=== PATIENT | female | born 1950 | race Hispanic/Latino ===

== ENCOUNTER 2016-11-02 09:21 | Outpatient (CLI) | payer MEDICARE ==
--- NOTE | 2016-11-02 13:58 | Mammography Report ---
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 COMPARISON:09/28/15 FINDINGS: The breasts are heterogeneously dense, which may obscure small masses.Stable asymmetry and architectural distortion at the left upper outer stereotactic biopsy site. No mass, suspicious architectural distortion or suspicious calcifications. IMPRESSION: No mammographic evidence of malignancy. BI-RADS CATEGORY: 2 -- Benign RECOMMENDATION: Routine mammographic screening in one year. COMMENT: Patient follow-up letters are generated by our [employer] application.
== END 2016-11-02 09:22 | disposition home or self-care (01) ==
LOC: SPVWC 09:21
PROVIDERS: ATTEND Nurse Practitioner Family
DX: Z12.31 Encounter for screening mammogram for malignant neoplasm of breast (principal)
CPT/HCPCS: 77067; G0202

== ENCOUNTER 2017-11-04 13:07 | Outpatient (CLI) | payer MEDICARE ==
--- NOTE | 2017-11-05 09:25 | Mammography Report ---
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 COMPARISON:11/02/16 FINDINGS: The breasts are heterogeneously dense, which may obscure small masses.Stable asymmetry and architectural distortion at the previous biopsy site in the upper outer left breast. No mass, suspicious architectural distortion or suspicious calcifications. IMPRESSION: No mammographic evidence of malignancy. BI-RADS CATEGORY: 2 -- Benign RECOMMENDATION: Routine mammographic screening in one year. COMMENT: Patient follow-up letters are generated by our [employer] application.
== END 2017-11-04 13:08 | disposition home or self-care (01) ==
LOC: SPVWC 13:07
PROVIDERS: ATTEND Nurse Practitioner Family
DX: Z12.31 Encounter for screening mammogram for malignant neoplasm of breast (principal)
CPT/HCPCS: 77067